=== PATIENT | female | born 1955 | race Caucasian/White ===

== ENCOUNTER → 2017-07-14 | Outpatient (CLI) | payer OTHER ==
[~2017-07-14] MED LIST: BENICAR20 MG PO; COLACE100 MG PO; FLEXERIL PO; HYDROCHLOROTH12.5 M1 PO; HYDROCODON-ACE1 EAC7 PO; IRON325 PO; LEVOTHYROXIN0.125 M1 PO; MEDROL4 MG PO; MOVANA300 MG PO; NAPROSYN500 MG PO; NORCO 5-325 TA1 EACH PO; OMEPRAZOLE 20 M20 MG PO; PREDNISONE 5 MG5 MG PO; VALACYCLOVIR1000 MG PO; VITAMIN D2000 UNIT PO
== END ==
LOC: M.RAD 11:13
DX: R07.9 Chest pain, unspecified (principal)

== ENCOUNTER → 2018-10-27 | Outpatient (CLI) | payer MEDICARE, OTHER | LOC: M.RAD 14:19 | DX: M85.88 Other specified disorders of bone density and structure, other site (principal) ==

== ENCOUNTER → 2021-01-01 | Outpatient (CLI) | payer MEDICARE, OTHER ==
--- NOTE | 2021-01-01 16:28 | CARDNUC ---
[place] [address] CARDIAC NUCLEAR IMAGING REPORT Name: PARMINDER CONCEPCION Room: [facility]#: [id number] Admission: 01/01/21 Attend Phys: Verona Turner, Discharge: Date of : 51 Date of Service: 01/01/21 1628 Report #: [id number] THIS REPORT FOR: cc: Krista Pennington MD, Katrina MD Liston, Michael J. MD [facility] ~ APPROVED REPORT Study performed: 01/01/2021 09:07:23 Exam: Nuclear Stress Test Indication: Dyspnea Patient Location: Out-Patient Stress Nurse: ANDRA Grossman Tech:FAITH Ordonez Ht: 5 ft 7 in Wt: 192 lbs BSA: 1.99 m2 BMI: 30.06 Medical History Medical History: HTN Medications: VALSARTAN Allergies: No known drug allergies Cardiac Risk Factors: Age, HTN Exercise History: Indeterminate Stress Test Details Stress Test: Pharmacologic stress testing performed using 0.4 mg of regadenoson per 5 mL given IV over 10 seconds. Reason for pharmacologic stress test: arthritis. HR Resting HR: 75 bpm Max Heart Rate (APMHR): 153 bpm Max HR Achieved: 94 bpm Target HR (85% APMHR): 130 bpm % of APMHR: 61 Recovery HR: 79 bpm BP Resting BP: 152/94 mmHg Max BP: 171/73 mmHg ECG Resting ECG: Sinus Rhythm Stress ECG: [place] [address] CARDIAC NUCLEAR IMAGING REPORT Name: PARMINDER CONCEPCION Room: [facility]#: [id number] Admission: 01/01/21 Attend Phys: Verona Turner, Discharge: Date of : 51 Date of Service: 01/01/21 1628 Report #: [id number] Change: None Arrhythmia: None Recovery ECG: Sinus Rhythm Recovery ST Change: None Recovery Arrhythmia: None Clinical Reason for Termination: Completed protocol The patient tolerated Lexiscan infusion without significant cardiac symptoms. Nurse Comments PT UNABLE TO WALK ON TREADMILL DUE TO ARTHRITIS Stress ECG Conclusion Baseline twelve-lead EKG shows sinus rhythm without significant ST segment or T wave abnormality. EKGs obtained during and post Lexiscan infusion show sinus rhythm with no significant ST segment changes when compared to baseline. There were no stress-induced arrhythmias. NM EXAM: Myocardial Perfusion REST/STRESS Imaging Protocol: Rest Tc-99m/Stress Tc-99m 1 day Resting Data Rest SPECT myocardial perfusion imaging was performed in supine position 30 minutes following the intravenous injection of 10.1 mCi of Tc-99m Sestamibi. Time of rest injection: 0800 Date: 01/01/2021 The images were gated to evaluate regional wall motion and calculate left ventricular ejection fraction. Administration Route: IV Administration Site: Right AC Pharmacologic Stress Pharmacologic stress test was performed by injecting Regadenoson 0.4 mg IV push followed by the intravenous injection of 33.9 mCi of Tc-99m Sestamibi. Time of stress injection: 909 Date: 01/01/2021 Administration Route: IV Administration Site: Right AC Gated Stress SPECT was performed 40 minutes after stress injection. The images were gated to evaluate regional wall motion and calculate left ventricular ejection fraction. Prone [place] [address] CARDIAC NUCLEAR IMAGING REPORT Name: PARMINDER CONCEPCION Room: [facility]#: [id number] Admission: 01/01/21 Attend Phys: Verona Turner, Discharge: Date of : 51 Date of Service: 01/01/21 1628 Report #: [id number] Study Quality Study: Good Artifact: Mild Breast and diaphragmatic artifact Study Data At rest, the left ventricular ejection fraction was 69%.. Post stress, the left ventricular ejection was 61%.. TID = 1.05. Perfusion Perfusion images obtained in the supine position post rest and stress show mild photopenia in the mid anterior mid inferior wall that resolves completely with post-rest prone imaging suggesting diaphragmatic and breast attenuation artifact. Post stress prone imaging shows uniform uptake of the radioisotope throughout the myocardium. Wall Motion Normal left ventricular wall motion. Nuclear Conclusion ECG Findings: negative for ischemia Clinical Findings: negative for ischemia Nuclear Findings: negative for ischemia Exercise Capacity: not assessed Left Ventricular Function: normal Risk Study: low Perfusion images show no defect to suggest infarct or ischemia. Left ventricular systolic function appears normal on gated studies. This is a low risk study. <Conclusion> Baseline twelve-lead EKG shows sinus rhythm without significant ST segment or T wave abnormality. EKGs obtained during and post Lexiscan infusion show sinus rhythm with no significant ST segment changes when compared to baseline. There were no stress-induced arrhythmias. <ELECTRONICALLY SIGNED> By: Cullen Llamas MD, FACC 01/01/21 1628 1628 1628 Cullen Llamas MD, FACC /INF
== END ==
LOC: M.NUC 12-10 14:47 → M.CRD 12-30 14:00 → M.NUC 12-30 14:00
PROVIDERS: ATTEND Internal Medicine
DX: R06.00 Dyspnea, unspecified (principal)

== ENCOUNTER → 2021-02-21 | Outpatient (CLI) | payer MEDICARE, OTHER ==
[2021-02-21 10:43] LABS: CALCIUM 9.1 mg/dL (8.5-10.1); CREATININE 0.9 mg/dL (0.6-1.3); POTASSIUM 4.7 mmol/L (3.5-5.1)
== END ==
LOC: M.LAB 10:18 → M.MRI 11:30
DX: R51.9 Headache, unspecified (principal)

== ENCOUNTER → 2021-03-03 | Outpatient (CLI) | payer MEDICARE, OTHER ==
[2021-03-03 08:43] LABS: ABSOLUTE LYMPHOCYTES 0.9 thou/uL (0.8-5.3); ABSOLUTE MONOCYTES 0.4 thou/uL (0.0-1.2); ABSOLUTE NEUTROPHILS 2.3 thou/uL (1.6-8.1); BASOPHILS 0.9 %; HEMATOCRIT 38.6 % (37.0-47.0); HEMOGLOBIN 12.8 gm/dL (12.0-15.0); LYMPHOCYTES 24.8 %; MCH 29.7 pg (26.0-34.0); MCHC 33.2 g/dL (28.0-37.0); MCV 89.7 fL (80.0-100.0); MONOCYTES 10.2 %; MPV 7.5 fl. (7.2-11.1); NUCLEATED RBCS 0 /100WBC; PLATELET COUNT* 179 thou/uL (150-400); POLYS 63.1 %; RBC 4.31 mil/uL (4.20-5.00); RDW-CV 14.4 % (10.5-14.5); WBC 3.7 thou/uL (4.0-11.0)
[2021-03-03 08:55] LABS: ALBUMIN 3.5 g/dL (3.4-5.0); CALCIUM 8.9 mg/dL (8.5-10.1); CREATININE 0.9 mg/dL (0.6-1.3); POTASSIUM 4.3 mmol/L (3.5-5.1); TOTAL BILIRUBIN 0.4 mg/dL (<0.1-1.0)
[2021-03-03 09:56] LABS: ESR (SEDRATE) 35 mm/hr (0-30)
[2021-03-03 17:06] LABS: IgA 608 mg/dL (87-352); IgG 1599 mg/dL (586-1602); IgM 30 mg/dL (26-217)
[2021-03-04 10:07] LABS: ANTI-SSA >8.0 AI (0.0-0.9)
[2021-03-04 17:07] LABS: ANA INTERPRETATION Positive (())
== END ==
LOC: M.MRI 02-25 10:50
PROVIDERS: ATTEND Psychiatry & Neurology Neuromuscular Medicine
DX: G51.0 Bell's palsy (principal); M32.9 Systemic lupus erythematosus, unspecified; E03.9 Hypothyroidism, unspecified; I67.82 Cerebral ischemia

== ENCOUNTER → 2021-03-21 | Outpatient (CLI) | payer MEDICARE, OTHER ==
[2021-03-21 10:56] LABS: CALCIUM 8.5 mg/dL (8.5-10.1); CREATININE 0.7 mg/dL (0.6-1.3); MAGNESIUM 1.9 mg/dL (1.8-2.4); POTASSIUM 4.2 mmol/L (3.5-5.1)
== END ==
LOC: M.LAB 10:30
PROVIDERS: ATTEND Internal Medicine
DX: I10 Essential (primary) hypertension (principal)